=== PATIENT | female | born 1995 | race Caucasian/White ===

== ENCOUNTER 2016-09-19 18:14 | Emergency (ER) | payer OTHER ==
[2016-09-19 17:59] LABS: INFLUENZA A NEG (NEG); INFLUENZA B NEG (NEG)
[~2016-09-19 18:14] MED LIST: ALBUTEROL17 GM INH; BACTRIM DS TABL1 TA1 PO; BACTRIM DS TABL1 TAB PO; BACTROBAN22 GM TOP; BIRTH CONTROL; BIRTH CONTROL PILL; CIPRO PO; CLEOCIN HCL150 MG PO; DELSYM30 MG/5 M1 PO; DICLOFENAC; FLOMAX0.4 M1 PO; IBUPROFEN600 MG PO; LORTAB 5-325 M1 EACH PO; LORTAB 5/500 TA1 TA1 PO; MAGIC MOUTHWASH PO; MOTRIN400 MG PO; NAPROSYN500 MG PO; NO MEDICATIONS; NORCO1 TAB 10/3 PO; PERCODAN TABLET1 TA1 PO; PHENERGAN PO; PHENERGAN25 MG PO; PREDNISONE; PRILOSEC PO; ROXICET 5/325 SO5 ML PO; TESSALON PERLE100 M1 PO; TYLENOL #3 PO; VIBRAMYCIN100 M1 PO; ZITHROMAX; ZITHROMAX PO; ZOFRAN; ZOFRAN ODT4 MG PO; ZOFRAN PO; ZOFRAN SL
== END 2016-09-19 18:20 | disposition home or self-care (01) ==
LOC: SED 18:14
PROVIDERS: Nurse Practitioner
DX: J06.9 Acute upper respiratory infection, unspecified (principal)
CPT/HCPCS: 87651; 87804; 87880; 99283

== ENCOUNTER 2017-01-20 16:24 | Emergency (ER) | payer OTHER | END 2017-01-20 17:15 | disposition home or self-care (01) | LOC: SED 16:24 | DX: S46.211A Strain of muscle, fascia and tendon of other parts of biceps, right arm, initial encounter (principal); Z88.0 Allergy status to penicillin; Z98.890 Other specified postprocedural states; X58.XXXA Exposure to other specified factors, initial encounter; Y92.9 Unspecified place or not applicable | CPT/HCPCS: 99283 ==

== ENCOUNTER 2017-02-13 12:52 | Emergency (ER) | payer OTHER ==
[2017-02-13 13:49] LABS: URINE SOURCE CLEAN CATCH
[2017-02-13 13:52] LABS: BASOPHIL% 0.5 % (0-2.5); EOSINOPHIL% 0.4 % (0.0-7.0); HEMOGLOBIN 13.3 gm/dL (12.0-16.0); LYMPHOCYTE# 1.1 X10e3 (1.0-3.5); LYMPHOCYTE% 16.4 % (17.0-45.0); MEAN CELL VOLUME 86.7 FL (83-96); MEAN CORPUSCULAR HEMOGLOBIN 29.6 PG (28-34); MEAN CORPUSCULAR HGB CONC 34.1 g/dL (30-36); MEAN PLATELET VOLUME 7.8 FL (6.5-11.5); MONOCYTE# 0.3 X10e3 (0-1.0); MONOCYTE% 4.4 % (3.0-12.0); NEUTROPHIL# 5.3 X10e3 (1.5-7.1); NEUTROPHIL% 78.3 % (40-75); PLATELET COUNT 254 X10e3 (140-420); RED BLOOD COUNT 4.49 X10e (3.90-5.30); RED CELL DISTRIBUTION WIDTH 12.8 % (11.0-15.5); WHITE BLOOD COUNT 6.7 X10e3 (4.0-10.5)
[2017-02-13 13:53] LABS: URINE APPEARANCE HAZY; URINE BILIRUBIN NEG (NEG); URINE BLOOD TRACE-INTACT (NEG); URINE COLOR YELLOW; URINE GLUCOSE NEG (NORM); URINE KETONE NEG (NEG); URINE LEUKOCYTE ESTERASE TRACE (NEG); URINE NITRATE NEG (NEG); URINE PH 5.5 (5-8); URINE PROTEIN NEG (NEG); URINE SPECIFIC GRAVITY 1.025 (1.003-1.035); URINE UROBILINOGEN 0.2 MG/DL (NORM)
[2017-02-13 14:04] LABS: MICRO INDICATED? YES
[2017-02-13 14:05] LABS: DIFF IND NO
[2017-02-13 14:07] LABS: CULTURE INDICATED? YES; URINE BACTERIA 2+ (NEG); URINE GRANULAR CAST 0-2 /[HPF]; URINE HYALINE CAST 0-2 /[HPF]; URINE MUCUS PRESENT; URINE RBC 0-2 /[HPF] (0-2); URINE SQUAMOUS EPITHELIAL CELL MANY /[HPF]; URINE WHITE BLOOD CELL CAST 0-2 /[HPF]
[2017-02-13 14:18] LABS: ALBUMIN SERUM 4.3 g/dL (3.5-5.0); BILIRUBIN,TOTAL 0.3 mg/dL (0.2-2.0); BUN/CREATININE RATIO 26.66; CALCIUM SERUM 9.1 mg/dL (8.4-10.2); CREATININE SERUM 0.6 mg/dL (0.6-1.4); GLOM FILT RATE Estimated 131.2 mL/min (>60); POTASSIUM 3.8 mmol/L (3.5-5.1); PROTEIN TOTAL SERUM 7.7 g/dL (6.0-8.3)
== END 2017-02-13 15:36 | disposition home or self-care (01) ==
LOC: SED 12:52
PROVIDERS: Physician Assistant
DX: N30.00 Acute cystitis without hematuria (principal); K21.9 Gastro-esophageal reflux disease without esophagitis; Z87.442 Personal history of urinary calculi; Z88.0 Allergy status to penicillin; Z79.899 Other long term (current) drug therapy
CPT/HCPCS: 36415; 80053; 81003; 82150; 83690; 84703; 85025; 87086; 96361; 96374; 96375; 99284; C9113; J2405

== ENCOUNTER → 2017-04-19 | Outpatient (CLI) | payer OTHER ==
--- NOTE | ~2017-04-19 | US134 ---
[facility] A Service of [facility] & [facility] RADIOLOGY TEXT RESULTS PATIENT: BRITTANY BE LOCATION: [place] : [birth year] UNIT #: [id number] AGE: [address]: MARTHA LOMAS SEX: F ORDER DR: [id number] [address] [address] [id number] O MR#: [id number] Acc #: [id number] NAME: BRITTANY BE : 1995 SEX: F STUDY DATE/TIME: 04/19/2017 14:43 UNIT: SGUS ROOM: STUDY DESCRIPTION: US Transvaginal Attending Physician: Martha Lomas M.D. Referring Physician: Martha Lomas M.D. Ordering Physician: Matrha Lomas M.D. Primary Care Physician: Karthik Beckett M.D. MEDICAL IMAGING REPORT This report is preliminary unless electronic signature is present. EXAM Endovaginal pelvic ultrasound 04/19/2017 HISTORY Intermittent pain left side of the pelvis area since 03/22/2017. CT scan of the abdomen and pelvis performed 03/22/2017 demonstrated a 4.4 cm left ovarian cyst. Pelvic ultrasound was recommended for further evaluation FINDINGS Endovaginal pelvic ultrasound was performed. Uterus measures 5.5 cm craniocaudal by 4 cm AP by 4.5 cm transverse. The endometrial stripe measures 7 mm. The left ovary measured 2.8 cm x 1.4 cm x 3.1 cm and contained a 1.8 cm prominent follicle with septations. The right ovary was not visualized. No adnexal mass was seen. There is minimal free fluid in the pelvis. IMPRESSION 1. 1.4 cm prominent follicle containing a septation on the left ovary. 2. Minimal free fluid in the pelvis. 3. Right ovary was not visualized. Dictated by... Yazan Webster M.D. THIS IS AN ELECTRONICALLY VERIFIED REPORT Yazan Webster M.D. at 04/20/2017 2:20 PM LYNNE/bryant TD: 04/20/2017 11:33 JOB #: [id number] [facility] A Service of [facility] & [facility] RADIOLOGY TEXT RESULTS PATIENT: BRITTANY BE LOCATION: [facility] : [birth year] UNIT #: [id number] AGE: [address]: MARTHA LOMAS SEX: F ORDER DR: MEDICAL IMAGING REPORT Page 1 of 1
== END | disposition home or self-care (01) ==
LOC: SGUS 14:43
DX: N83.202 Unspecified ovarian cyst, left side (principal)
CPT/HCPCS: 76830